=== PATIENT | male | born 1990 | race Caucasian/White ===

== ENCOUNTER 2017-07-31 21:34 | Emergency (ER) | payer OTHER ==
[2017-08-01] MEDS: ACETAMINOPHEN 500 MG TAB PO (01:52)
[2017-08-01] MEDS: IBUPROFEN 800 MG TAB PO (01:52)
== END 2017-08-01 02:58 | disposition home or self-care (01) ==
LOC: FTE 21:34
DX: R50.9 Fever, unspecified (principal); R51 Headache; R05 Cough; J02.9 Acute pharyngitis, unspecified; J45.909 Unspecified asthma, uncomplicated
CPT/HCPCS: 99283